=== PATIENT | male | born 1995 | race African-American/Black ===

== ENCOUNTER 2018-03-12 13:30 | Emergency (ER) | payer OTHER ==
[2018-03-12 13:59] VITALS: BP 104/58
--- NOTE | 2018-03-12 14:53 | UC ---
Ear Complaint HPI - HPI Summary HPI Summary: both ear feel plugged decreased hearing right ear, also needs epi pen refilled for peanut allergy - History of Current Complaint Chief Complaint: UCEar Stated Complaint: EAR PAIN AND PLUGGED Time Seen by Provider: 03/12/18 14:37 Hx Obtained From: Patient Onset/Duration: Gradual Onset, Lasting Days Pain Intensity: 1 Pain Scale Used: 0-10 Numeric Aggravating Factors: Nothing Alleviating Factors: Nothing Associated Signs/Symptoms: Positive: Hearing Loss - Allergies/Home Medications Allergies/Adverse Reactions: Allergies Allergy/AdvReac Type Severity Reaction Status Date / Time nut - unspecified Allergy Severe Anaphylatic Verified 03/12/18 13:59 Shock lactose Allergy Mild GI Upset Verified 03/12/18 13:59 Home Medications: Home Medications Valacyclovir HCl [Valacyclovir] 500 mg PO DAILY WITH MEAL 03/12/18 [History Confirmed 03/12/18] PMH/Surg Hx/FS Hx/Imm Hx Previously Healthy: Yes - Surgical History Surgical History: Yes Surgery Procedure, Year, and Place: LEFT SHOULDER LABRUM TEAR 06/05/2014. WISDOM TEETH - Family History Known Family History: Positive: None - Social History Occupation: Student Lives: With Family Alcohol Use: Occasionally Substance Use Type: None Smoking Status (MU): Never Smoked Tobacco Review of Systems All Other Systems Reviewed And Are Negative: Yes Constitutional: Positive: Negative Skin: Positive: Negative Eyes: Positive: Negative ENT: Positive: Ear Ache - bilateral with decreased hearing right ear Respiratory: Positive: Negative Cardiovascular: Positive: Negative Gastrointestinal: Positive: Negative Genitourinary: Positive: Negative Motor: Positive: Negative Neurovascular: Positive: Negative Musculoskeletal: Positive: Negative Neurological: Positive: Negative Psychological: Positive: Negative Is Patient Immunocompromised?: No Physical Exam Triage Information Reviewed: Yes Appearance: Well-Appearing, No Pain Distress, Well-Nourished Vital Signs: Initial Vital Signs Temp 98.0 F 03/12/18 13:55 Pulse 62 03/12/18 13:55 Resp 18 03/12/18 13:55 BP 104/58 03/12/18 13:55 Pulse Ox 100 03/12/18 13:55 Vital Signs Reviewed: Yes Eye Exam: Normal Eyes: Positive: Conjunctiva Clear ENT Exam: Normal ENT: Positive: Normal ENT inspection, Hearing grossly normal, Pharynx normal, Pharyngeal erythema, Nasal congestion, Other - bilateral cerumen impaction--- wnl after fl;ush. Negative: Tonsillar swelling, Tonsillar exudate, Trismus, Muffled voice Dental Exam: Normal Neck exam: Normal Neck: Positive: Supple, Nontender, No Lymphadenopathy Respiratory Exam: Normal Respiratory: Positive: Chest non-tender, Lungs clear, Normal breath sounds, No respiratory distress, No accessory muscle use Cardiovascular Exam: Normal Cardiovascular: Positive: RRR, No Murmur, Pulses Normal, Brisk Capillary Refill Musculoskeletal Exam: Normal Musculoskeletal: Positive: Strength Intact, ROM Intact, No Edema Neurological Exam: Normal Neurological: Positive: Alert, Muscle Tone Normal Psychological Exam: Normal Skin Exam: Normal Ear Complaint Course/Dx - Course Course Of Treatment: refilled epi pen for peanut allergy, encouraged not to use q-tips, follow with pcp prn - Differential Dx/Diagnosis Provider Diagnosis: Impacted cerumen, bilateral, H/O allergy to nuts Discharge - Sign-Out/Discharge Documenting (check all that apply): Patient Departure All imaging exams completed and their final reports reviewed: No Studies - Discharge Plan Condition: Stable Disposition: HOME Prescriptions: EPINEPHrine [Epipen 2-Garrett] 0.3 mg IM ONCE PRN #1 inj PRN Reason: allergic reaction Patient Education Materials: Cerumen Impaction (ED), Peanut Allergy (ED) Referrals: [facility] [Outside] - If Needed - Billing Disposition and Condition Condition: STABLE Disposition: Home
== END 2018-03-12 15:32 | disposition home or self-care (01) ==
LOC: UCEAST 13:30
DX: H61.23 Impacted cerumen, bilateral (principal); Z91.010 Allergy to peanuts; Z91.011 Allergy to milk products; Z91.018 Allergy to other foods
CPT/HCPCS: 99213; G0463